=== PATIENT | male | born 1960 | race Caucasian/White ===

== ENCOUNTER 2023-04-28 09:34 | Emergency (ER) | payer OTHER ==
[2023-04-28 09:54] VITALS: BP 145/89; PULSE 85; RESP 16; TEMP 99.6; BMI 20.7
[2023-04-28] MEDS ORDERED: IBUPROFEN 600 MG TABLET (FP) PO ONE (10:16)
[2023-04-28] MEDS ORDERED: LIDOCAINE 4% PATCH TP ONE (10:16)
[2023-04-28] MEDS: LIDOCAINE 4% PATCH TP ONE (10:20)
[2023-04-28] MEDS: IBUPROFEN 600 MG TABLET (FP) PO ONE (10:21)
[2023-04-28] MEDS ORDERED: LIDOCAINE PATCH REMOVAL MC ONE (22:00)
== END 2023-04-28 10:27 | disposition home or self-care (01) ==
LOC: JERFT 09:34
DX: S13.4XXA Sprain of ligaments of cervical spine, initial encounter (principal); S60.811A Abrasion of right wrist, initial encounter; V49.40XA Driver injured in collision with unspecified motor vehicles in traffic accident, initial encounter
CPT/HCPCS: 99283-25